=== PATIENT | female | born 1955 | race Caucasian/White ===

== ENCOUNTER → 2017-07-21 | Outpatient (CLI) | payer OTHER | LOC: FIMAGING 15:22 | PROVIDERS: ATTEND Obstetrics & Gynecology | DX: Z12.31 Encounter for screening mammogram for malignant neoplasm of breast (principal) | CPT/HCPCS: G0202 ==

== ENCOUNTER → 2017-07-29 | Outpatient (CLI) | payer OTHER | LOC: FIMAGING 14:11 | PROVIDERS: ATTEND Obstetrics & Gynecology | DX: N63.20 Unspecified lump in the left breast, unspecified quadrant (principal) ==

== ENCOUNTER → 2018-06-09 | Outpatient (CLI) | payer OTHER | LOC: FIMAGING 12:09 | PROVIDERS: ATTEND Physician Assistant Medical | DX: Z12.89 Encounter for screening for malignant neoplasm of other sites (principal); C64.9 Malignant neoplasm of unspecified kidney, except renal pelvis ==

== ENCOUNTER 2018-09-16 20:10 | Emergency (ER) | payer OTHER ==
[2018-09-16] MEDS ORDERED: NS 2,200 ML IV ONE (20:35)
--- NOTE | 2018-09-16 20:41 | EDPHY ---
H & P Stated Complaint: says coughing yesterday, today fatigue/fever of 101F, ca pt Time Seen by Provider: 09/16/18 20:20 HPI/ROS: CHIEF COMPLAINT: Fever HISTORY OF PRESENT ILLNESS: Patient is a 62-year-old female who is currently receiving chemotherapy with Dr. Meyer for history of renal carcinoma and has nephrectomy planned next month. She is scheduled to restart another round of chemotherapy next week. The patient states that she had a slight runny nose and sore throat yesterday but those have both resolved. She denies shortness of breath or cough. She denies abdominal pain. No urinary or vaginal symptoms. She has had mild nausea ever since she began chemotherapy and it has not worsened. No diarrhea. No headache. She does however complain of chills and diffuse body aches. T-max at home was 101. No flu vaccine this year. Severity: Moderate Modifying factors: None REVIEW OF SYSTEMS: Constitutional: denies: chills, fever, recent illness, recent injury EENTM: denies: blurred vision, double vision, nose congestion Respiratory: denies: cough, shortness of breath Cardiac: denies: chest pain, irregular heart rate, lightheadedness, palpitations Gastrointestinal/Abdominal: denies: abdominal pain, diarrhea, nausea, vomiting, blood streaked stools Genitourinary: denies: dysuria, frequency, hematuria, pain Musculoskeletal: denies: joint pain, muscle pain Skin: denies: lesions, rash, jaundice, bruising Neurological: denies: headache, numbness, paresthesia, tingling, dizziness, weakness Hematologic/Lymphatic: denies: blood clots, easy bleeding, easy bruising Immunologic/allergic: denies: HIV/AIDS, transplant 10 systems reviewed and negative except as noted EXAM: GENERAL: Well-appearing, well-nourished and in no acute distress. HEAD: Atraumatic, normocephalic. EYES: Pupils equal round and reactive to light, extraocular movements intact, sclera anicteric, conjunctiva are normal. ENT: TMs normal, nares patent, oropharynx clear without exudates. Moist mucous membranes. NECK: Normal range of motion, supple without lymphadenopathy or JVD. LUNGS: Breath sounds clear to auscultation bilaterally and equal. No wheezes rales or rhonchi. HEART: Regular rate and rhythm without murmurs, rubs or gallops. ABDOMEN: Soft, nontender, normoactive bowel sounds. No guarding, no rebound. No masses appreciated. BACK: No CVA tenderness, no spinal tenderness, step-offs or deformities EXTREMITIES: Normal range of motion, no pitting or edema. No clubbing or cyanosis. NEUROLOGICAL: Cranial nerves II through XII grossly intact. Normal speech, normal gait. 5/5 strength, normal movement in all extremities, normal sensation , normal reflexes PSYCH: Normal mood, normal affect. SKIN: Warm, dry, normal turgor, no visible rashes or lesions. Source: Patient Exam Limitations: No limitations - Medical/Surgical History Hx Asthma: No Hx Chronic Respiratory Disease: No Hx Diabetes: No Hx Cardiac Disease: Yes Hx Renal Disease: No Hx Cirrhosis: No Hx Alcoholism: No Hx HIV/AIDS: No Hx Splenectomy or Spleen Trauma: No Other PMH: hypertension, hyperlipidemia, kidney carcinoma, c section x 2, hysterectomy - Family History Significant Family History: No pertinent family hx - Social History Smoking Status: Never smoked Alcohol Use: Sober Drug Use: None Constitutional: Initial Vital Signs Temperature (C) 37.3 C 09/16/18 20:14 Heart Rate 117 H 09/16/18 20:14 Respiratory Rate 18 09/16/18 20:14 Blood Pressure 158/99 H 09/16/18 20:14 O2 Sat (%) 96 09/16/18 20:14 O2 Delivery Mode Room Air Allergies/Adverse Reactions: No Known Allergies Allergy (Verified 09/16/18 20:18) Home Medications: Medication Instructions Recorded Atorvastatin Calcium [Lipitor 40 40 mg PO HS 06/13/18 mg (*)] Estradiol [Vivelle-Dot 0.025MG (*)] 0.025 mg TD TUFR 06/13/18 Lisinopril [Zestril 5 mg (*)] 12.5 mg PO DAILY 06/13/18 Claritin 09/16/18 Compazine 10mg (*) 09/16/18 Magnebind 400 Rx Tablet 09/16/18 Oseltamivir Phosphate [Tamiflu 75 75 mg PO BID #10 cap 09/16/18 mg (*)] Zarxio 09/16/18 Medical Decision Making - Diagnostics Imaging Results: Imaging Impressions Chest X-Ray 09/16/18 20:36 Impression: No evidence for acute cardiopulmonary abnormality. Imaging: Discussed imaging studies w/ vehicle monitor technician Radiologist ED Course/Re-evaluation: The patient is flu A positive. I will likely start her on Tamiflu. I have put a page out to her Oncology group for further advice. 10:00 p.m. I spoke with Dr. Kamara who agrees with this plan. Differential Diagnosis: Partial list of the Differential diagnosis considered include but were not limited to; influenza, neutropenic and although unlikely based on the history and physical exam, I also considered []. I discussed these differential diagnoses and the plan with the [patient] as well as the usual and expected course. The [patient understands] that the diagnosis is provisional and that in medicine we are not always correct and that further workup is often warranted. Usual and customary warnings were given. All of the [patient's] questions were answered. The [patient was] instructed to return to the emergency department should the symptoms at all worsen or return, otherwise to followup with the physician as we discussed. - Data Points Laboratory Results: Laboratory Results 09/16/18 21:05 09/16/18 21:05 09/16/18 09/16/18 09/16/18 Unknown 21:30 21:05 WBC RBC Hgb Hct MCV MCH MCHC RDW Plt Count MPV Neut % (Auto) Lymph % (Auto) Mcminn % (Auto) Eos % (Auto) Baso % (Auto) Nucleat RBC Rel Count Absolute Neuts (auto) Absolute Lymphs (auto) Absolute Monos (auto) Absolute Eos (auto) Absolute Basos (auto) Absolute Nucleated RBC Immature Gran % Immature Gran # RBC/WBC/PLT Morphology Platelet Estimate PT 13.4 SEC SEC (12.0-15.0) INR 1.00 (0.83-1.16) APTT 27.1 SEC SEC (23.0-38.0) VBG Lactic Acid Sodium Potassium Chloride Carbon Dioxide Anion Gap BUN Creatinine Estimated GFR Glucose Calcium Total Bilirubin Nasal Influenza A PCR Nasal Influenza B PCR Group A Strep Screen NEGATIVE (NEGATIVE) Group A Strep DNA Pending 09/16/18 09/16/18 09/16/18 21:05 21:05 21:05 WBC 1.65 10^3/uL L 10^3/uL (3.80-9.50) RBC 2.83 10^6/uL L 10^6/uL (4.18-5.33) Hgb 9.2 g/dL L g/dL (12.6-16.3) Hct 27.1 % L % (38.0-47.0) MCV 95.8 fL fL (81.5-99.8) MCH 32.5 pg pg (27.9-34.1) MCHC 33.9 g/dL g/dL (32.4-36.7) RDW 16.1 % H % (11.5-15.2) Plt Count 150 10^3/uL 10^3/uL (150-400) MPV 10.1 fL fL (8.7-11.7) Neut % (Auto) 71.6 % % (39.3-74.2) Lymph % (Auto) 18.2 % % (15.0-45.0) Mcminn % (Auto) 4.2 % L % (4.5-13.0) Eos % (Auto) 3.0 % % (0.6-7.6) Baso % (Auto) 1.8 % H % (0.3-1.7) Nucleat RBC Rel Count 0.0 % % (0.0-0.2) Absolute Neuts (auto) 1.18 10^3/uL L 10^3/uL (1.70-6.50) Absolute Lymphs (auto) 0.30 10^3/uL L 10^3/uL (1.00-3.00) Absolute Monos (auto) 0.07 10^3/uL L 10^3/uL (0.30-0.80) Absolute Eos (auto) 0.05 10^3/uL 10^3/uL (0.03-0.40) Absolute Basos (auto) 0.03 10^3/uL 10^3/uL (0.02-0.10) Absolute Nucleated RBC 0.00 10^3/uL 10^3/uL (0-0.01) Immature Gran % 1.2 % H % (0.0-1.1) Immature Gran # 0.02 10^3/uL 10^3/uL (0.00-0.10) RBC/WBC/PLT Morphology TNP Platelet Estimate TNP PT INR APTT VBG Lactic Acid 1.0 mmol/L mmol/L (0.7-2.1) Sodium 132 mEq/L L mEq/L (135-145) Potassium 4.7 mEq/L mEq/L (3.5-5.2) Chloride 103 mEq/L mEq/L (97-110) Carbon Dioxide 21 mEq/l L mEq/l (22-31) Anion Gap 8 mEq/L mEq/L (6-14) BUN 20 mg/dL mg/dL (7-23) Creatinine 1.0 mg/dL mg/dL (0.6-1.0) Estimated GFR 57 Glucose 100 mg/dL mg/dL (70-100) Calcium 8.5 mg/dL mg/dL (8.5-10.4) Total Bilirubin 0.3 mg/dL mg/dL (0.1-1.4) Nasal Influenza A PCR Nasal Influenza B PCR Group A Strep Screen Group A Strep DNA 09/16/18 20:40 WBC RBC Hgb Hct MCV MCH MCHC RDW Plt Count MPV Neut % (Auto) Lymph % (Auto) Mcminn % (Auto) Eos % (Auto) Baso % (Auto) Nucleat RBC Rel Count Absolute Neuts (auto) Absolute Lymphs (auto) Absolute Monos (auto) Absolute Eos (auto) Absolute Basos (auto) Absolute Nucleated RBC Immature Gran % Immature Gran # RBC/WBC/PLT Morphology Platelet Estimate PT INR APTT VBG Lactic Acid Sodium Potassium Chloride Carbon Dioxide Anion Gap BUN Creatinine Estimated GFR Glucose Calcium Total Bilirubin Nasal Influenza A PCR FLU A DETECTED H (NEGATIVE) Nasal Influenza B PCR NEGATIVE FOR FLU B (NEGATIVE) Group A Strep Screen Group A Strep DNA Medications Given: Discontinued Medications Sodium Chloride (Ns) 2,200 mls @ 4,400 mls/hr 30 ml/kg infuse over 30 min ( 2200 ml) IV EDNOW ONE PRN Reason: Protocol Stop: 09/16/18 21:04 Last Admin: 09/16/18 21:08 Dose: 2,200 mls Oseltamivir Phosphate (Tamiflu) 75 mg PO EDNOW ONE Stop: 09/16/18 22:02 Last Admin: 09/16/18 22:06 Dose: 75 mg Departure - Departure Disposition: Home, Routine, Self-Care Clinical Impression: Influenza A Condition: Fair Instructions: Influenza (ED) Additional Instructions: Call your oncology office on Tuesday if your feeling worse. Today we spoke with Dr. Kamara who will relay this information to Dr. Meyer Referrals: Sommer Cruz MD [Primary Care Provider] - As per Instructions Prescriptions: Oseltamivir Phosphate [Tamiflu 75 mg (*)] 75 mg PO BID #10 cap
[2018-09-16 21:20] LABS: PLATELET COUNT 150 10^3/uL (150-400)
[2018-09-16 21:29] LABS: PROTIME(PATIENT) 13.4 SEC (12.0-15.0)
[2018-09-16] MEDS ORDERED: OSELTAMIVIR PHOSPHATE 75 MG CAP PO ONE (22:01)
[2018-09-16 22:08] VITALS: BP 149/83
== END 2018-09-16 22:37 | disposition home or self-care (01) ==
DX: J09.X2 Influenza due to identified novel influenza A virus with other respiratory manifestations (principal); C64.9 Malignant neoplasm of unspecified kidney, except renal pelvis; I10 Essential (primary) hypertension; E78.5 Hyperlipidemia, unspecified